=== PATIENT | female | born 1965 | race Caucasian/White ===

== ENCOUNTER → 2017-01-06 | Outpatient (CLI) | payer OTHER ==
[~2017-01-06] MED LIST: GADOBUTROL 10 ML VIAL IVP ONE
== END ==
LOC: FIMAGING 19:22
DX: C53.1 Malignant neoplasm of exocervix (principal); Z85.048 Personal history of other malignant neoplasm of rectum, rectosigmoid junction, and anus; D25.9 Leiomyoma of uterus, unspecified
CPT/HCPCS: A9585

== ENCOUNTER → 2017-03-16 | Outpatient (CLI) | payer OTHER | LOC: FIMAGING 10:02 | DX: C53.8 Malignant neoplasm of overlapping sites of cervix uteri (principal); D25.9 Leiomyoma of uterus, unspecified; Z85.048 Personal history of other malignant neoplasm of rectum, rectosigmoid junction, and anus | CPT/HCPCS: A9585 ==